=== PATIENT | female | born 1980 | race Caucasian/White ===

== ENCOUNTER 2017-12-30 17:55 | Emergency (ER) | payer BC, SELFPAY ==
[2017-12-30 18:06] VITALS: BP 121/79; PULSE 121; RESP 20; TEMP 37.1; O2SAT 96; BMI 24.2
--- NOTE | 2017-12-30 18:29 | HMH.EDUTC ---
[facility] [place] Clinical Impression: Abdominal pain, acute, epigastric Disposition: Still a Patient Condition on Discharge: Good Time of Disposition: 18:30 (tx to ER bed 9) Medical Decision Making - Clark Inquiry Pt receiving controlled substance: No Vital Signs: 12/30/17 18:06 Temperature 98.7 F Temperature Source Temporal Artery Scan Pulse Rate [Brachial] 121 H Respiratory Rate 20 Blood Pressure [Right Arm] 121/79 Blood Pressure Mean [Right Arm] 93 Blood Pressure Source [Right Arm] Automatic Cuff Blood Pressure Position [Right Arm] Sitting 02 Sat by Pulse Oximetry 96 Oxygen Delivery Method Room Air - Reevaluation(s) Time: 18:29 Reevaluation #1: Discussed possible differentials and [facility] guidelines with patient. Agreeable to transfer to ER for abdominal pain evaluation. Report called to ZAHRA Silveira RN. Room 9 available. [facility] [place] - General Stated complaint: abd pain,nausa Time Seen by Provider: 12/30/17 18:10 Mode of Arrival: Ambulatory Source of Information: Patient Limitations: No Limitations Description of Symptoms (Recalled from Triage Doc. by RN): INTERMITTANT ABDOMINAL PAIN FOR 2 MONTHS, HAS NAUSEA, ABD PAIN AND BLOATING TODAY. 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 STOOL TODAY HAS BEEN SMALL FORMED BALLS AND THEN GEL LIKE STOOL. HEENT Symptoms (Recalled from RN notes): No Resp Symptoms (Recalled from RN notes): No Skin Symptoms (Recalled from RN notes): No MS Symptoms (Recalled from RN notes): No Functional Status (Recalled from RN notes): NA - History of Present Illness Provider Complaint: c/o acute abdominal pain. 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 Started w/ RUQ sharp pains that would last 10-15 minutes, be better x hours, then occur again. Saw PCP, Dr. Tellez approx 2 months ago. RUQ US normal at that time. Hx of Sjorgen's Syndrome, hiatel hernia, H Pylori last year, stomach ulcers, Xiao's Esophagus, multiple colon polyps. Last EGD and colonoscopy nearly a year ago . Total hysterectomy 2007 d/t endometriosis that started to effect my bowel . Acute pain today. Woke pt up at 6am. New location. Epigastric but radiating to RUQ. Constant. Continued to worsen throughout day. Associated w/ bloating and nausea. Zofran has kept pt from vomiting. Last dose at 3pm. Stool has changed today. Hx of hemorrhoids and intermittent bleeding but not today. Today, gel like stools. No fever. Hasn't eaten since 6am when she ate breakfast and symptoms started. pain worse with movement. Even just the bumps on the car ride here hurt . - Related Data Home Medications Medication Instructions Recorded Confirmed Omeprazole Magnesium [Prilosec Otc 20 mg PO BID 12/30/17 12/30/17 20mg Tab] Allergies Allergy/AdvReac Type Severity Reaction Status Date / Time ketorolac [From TORADOL] Allergy Severe RESPIRATORY Unverified 10/07/17 14:09 - Worker's Comp Is this a Worker's Comp case?: No [facility] History I have reviewed the patient's past medical history: Yes Medical History: Reports:: Gastroesophageal Reflux Disease(GERD) Denies:: Diabetes Mellitus Type 1, Diabetes Mellitus Type 2, Hypertension Other Medical History: Reports: Other (see HPI) Other Surgeries: Yes: Hysterectomy-Total (2007) - Social History Alcohol Intake: never - Psychiatric History Expresses thoughts of harming self/others: None Suicide Plan Description: No Plan ROS Obtained: Yes Systems reviewed as appropriate & no additional complaints - Constitutional Constitutional: Reports as per HPI, Denies chills, Denies fatigue - Cardiovascular Cardiovascular: Denies chest pain, Denies irregular heart rhythm - Respiratory Respiratory: No dyspnea - Gastrointestinal Gastrointestingal: Reports: as per HPI. Denies: belching, excessive passing of gas - Genitourinary Female Genitourinary: Denies dysuria, Denies urinary frequency, Denies other (urine characteristics) - Musculoskeletal Musculo
--- NOTE | 2017-12-30 18:33 | ED_ITS ---
[facility] [place] Clinical Impression: Abdominal pain, acute, epigastric Disposition: Still a Patient Condition on Discharge: Good Time of Disposition: 18:30 (tx to ER bed 9) Medical Decision Making - Clark Inquiry Pt receiving controlled substance: No Vital Signs: 12/30/17 18:06 Temperature 98.7 F Temperature Source Temporal Artery Scan Pulse Rate [Brachial] 121 H Respiratory Rate 20 Blood Pressure [Right Arm] 121/79 Blood Pressure Mean [Right Arm] 93 Blood Pressure Source [Right Arm] Automatic Cuff Blood Pressure Position [Right Arm] Sitting 02 Sat by Pulse Oximetry 96 Oxygen Delivery Method Room Air - Reevaluation(s) Time: 18:29 Reevaluation #1: Discussed possible differentials and [facility] guidelines with patient. Agreeable to transfer to ER for abdominal pain evaluation. Report called to ZAHRA Silveira RN. Room 9 available. [facility] [place] HPI - General Stated complaint: abd pain,nausa Time Seen by Provider: 12/30/17 18:10 Mode of Arrival: Ambulatory Source of Information: Patient Limitations: No Limitations Description of Symptoms (Recalled from Triage Doc. by RN): INTERMITTANT ABDOMINAL PAIN FOR 2 MONTHS, HAS NAUSEA, ABD PAIN AND BLOATING TODAY. 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 STOOL TODAY HAS BEEN SMALL FORMED BALLS AND THEN GEL LIKE STOOL. HEENT Symptoms (Recalled from RN notes): No Resp Symptoms (Recalled from RN notes): No Skin Symptoms (Recalled from RN notes): No MS Symptoms (Recalled from RN notes): No Functional Status (Recalled from RN notes): NA - History of Present Illness Provider Complaint: c/o acute abdominal pain. 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 Started w/ RUQ sharp pains that would last 10-15 minutes, be better x hours, then occur again. Saw PCP, Dr. Tellez approx 2 months ago. RUQ US normal at that time. Hx of Sjorgen's Syndrome, hiatel hernia, H Pylori last year, stomach ulcers, Xiao's Esophagus, multiple colon polyps. Last EGD and colonoscopy nearly a year ago . Total hysterectomy 2007 d/t endometriosis that started to effect my bowel . Acute pain today. Woke pt up at 6am. New location. Epigastric but radiating to RUQ. Constant. Continued to worsen throughout day. Associated w/ bloating and nausea. Zofran has kept pt from vomiting. Last dose at 3pm. Stool has changed today. Hx of hemorrhoids and intermittent bleeding but not today. Today, gel like stools. No fever. Hasn't eaten since 6am when she ate breakfast and symptoms started. pain worse with movement. Even just the bumps on the car ride here hurt . - Related Data Home Medications Medication Instructions Recorded Confirmed Omeprazole Magnesium [Prilosec Otc 20 mg PO BID 12/30/17 12/30/17 20mg Tab] Allergies Allergy/AdvReac Type Severity Reaction Status Date / Time ketorolac [From TORADOL] Allergy Severe RESPIRATORY Unverified 10/07/17 14:09 - Worker's Comp Is this a Worker's Comp case?: No [facility] History I have reviewed the patient's past medical history: Yes Medical History: Reports:: Gastroesophageal Reflux Disease(GERD) Denies:: Diabetes Mellitus Type 1, Diabetes Mellitus Type 2, Hypertension Other Medical History: Reports: Other (see HPI) Other Surgeries: Yes: Hysterectomy-Total (2007) - Social History Alcohol Intake: never - Psychiatric History Expresses thoughts of harming self/others: None Suicide Plan Description:
[2017-12-30 18:36] VITALS: BP 129/75; PULSE 110; RESP 16; TEMP 37.1; O2SAT 94; BMI 24.2
--- NOTE | 2017-12-30 18:55 | HMH.EDABDPAI ---
ED Disposition Condition on Discharge: Good - Critical Care Critical Care Time: No <LorenaZoltan - Last Filed: 12/30/17 20:16> <Milton Tellez - Last Filed: 12/30/17 22:41> Clinical Impression: Abdominal pain, acute, epigastric Disposition: Home, Self-Care Instructions: DI for Acute Abdomen Additional Instructions: call pcp and gi for follow up Referrals: Milton Tellez MD [Primary Care Provider] - Attestation: On 12/30/17, the high probability of a clinically significant, sudden or life threatening deterioration of the following system(s) required my full and direct attention, intervention and personal management. The time I documented below is in addition to time spent performing reported procedures but includes the following listed in this critical care notation. Medical Decision Making - Clark Inquiry Pt receiving controlled substance: No - Lab Data Result diagrams: 12/30/17 18:50 12/30/17 18:50 <Zoltan Carrillo - Last Filed: 12/30/17 20:16> - Lab Data Result diagrams: 12/30/17 18:50 12/30/17 18:50 <Milton Tellez - Last Filed: 12/30/17 22:41> Vital Signs: 12/30/17 18:06 12/30/17 18:36 12/30/17 22:31 Temperature 98.7 F 98.7 F 97.6 F Temperature Source Temporal Artery Scan Oral Oral Pulse Rate [Brachial] 121 H 110 H 110 H Respiratory Rate 20 16 12 Blood Pressure [Right Arm] 121/79 129/75 149/85 Blood Pressure Mean [Right Arm] 93 93 106 Blood Pressure Source [Right Arm] Automatic Cuff Automatic Cuff Automatic Cuff Blood Pressure Position [Right Arm] Sitting Sitting Sitting 02 Sat by Pulse Oximetry 96 94 L 98 Oxygen Delivery Method Room Air Room Air Room Air - Lab Data Lab Results 12/30/17 18:50: WBC 7.6, RBC 4.50, Hgb 13.4, Hct 39.6, MCV 88.0, MCH 29.8, MCHC 33.9, RDW 12.8, Plt Count 201, MPV 7.9, Neut % (Auto) 85.4 H, Lymph % (Auto) 8.5 L, Bulloch % (Auto) 3.1, Eos % (Auto) 2.9, Baso % (Auto) 0.1, Neut # (Auto) 6.5, Lymph # (Auto) 0.7, Bulloch # (Auto) 0.2, Eos # (Auto) 0.2, Baso # (Auto) 0.0, Total Counted 100, Neutrophils % (Manual) 88 H, Lymphocytes % (Manual) 11, Eosinophils % (Manual) 1, Platelet Estimate Normal, RBC Morphology Normal, Stomatocytes 1+ 12/30/17 18:50: Sodium 140, Potassium 4.0, Chloride 105, Carbon Dioxide 27, Anion Gap 12.0, BUN 18, Creatinine 0.71, Estimated Creat Clear 114, Estimated GFR 92, Est GFR ( Amer) 111, Glucose 118 H, Calcium 8.5, Total Bilirubin 0.8, AST 26, ALT 61, Alkaline Phosphatase 78, Total Protein 7.5, Albumin 4.1, Globulin 3.4 H, Albumin/Globulin Ratio 1.2, Amylase 63, Lipase 177 Orders (Tests/Meds): ED MEDICATIONS Discontinued Medications Generic Name Dose Route Start Last Admin Trade Name Lindsey PRN Reason Stop Dose Admin Diatrizoate Meglum/Diatrizoate Sod 30 ml 12/30/17 19:25 12/30/17 19:26 Gastrografin 66%-10% 30ml PO 12/30/17 19:26 30 ml ONCE ONE Administration Famotidine 20 mg 12/30/17 22:15 12/30/17 22:19 Pepcid 20mg/2ml Vial IV 12/30/17 22:16 20 mg ONCE ONE Administration Iopamidol 75 ml 12/30/17 21:12 12/30/17 21:13 [id number]; 75ml Vial IV 12/30/17 21:13 75 ml ONCE ONE Administration Metoclopramide HCl 10 mg 12/30/17 22:15 12/30/17 22:19 Reglan 10mg/2ml Vial IVP 12/30/17 22:16 10 mg ONCE ONE Administration Ondansetron HCl 4 mg 12/30/17 19:19 12/30/17 19:26 Zofran 4mg/2ml Vial IV 12/30/17 19:20 4 mg ONCE ONE Administration Promethazine HCl 12.5 mg 12/30/17 22:15 12/30/17 22:20 Phenergan 25mg/Ml 1ml Vial IV 12/30/17 22:16 12.5 mg ONCE ONE Administration Sodium Chloride 1,000 ml 12/30/17 19:19 12/30/17 19:26 Sod Chlor 0.9% 1000ml Bag IV 12/30/17 19:20 1,000 ml BOLUS ONE Administration Sodium Chloride 10 ml 12/30/17 21:12 12/30/17 21:13 Rad-Saline Flush 10ml Syringe IV 12/30/17 21:13 10 ml ONCE ONE Administration Sodium Chloride 25 ml 12/30/17 22:15 Sod Chlor 0.9% 25ml Bag IV 12/30/17 22:16
[2017-12-30 19:01] LABS: Basophils % 0.1 % (0.1-2.0); Eosinophils # 0.2 K/mm3 (0.0-0.4); Eosinophils % 2.9 % (0.1-12.0); Hematocrit 39.6 % (37.0-47.0); Hemoglobin 13.4 g/dL (12.2-16.2); Lymphocytes # 0.7 K/mm3 (0.7-4.5); Lymphocytes % 8.5 K/mm3 (10-50); Mean Corpuscular HGB Conc 33.9 g/dL (31.8-35.4); Mean Corpuscular Hemoglobin 29.8 pg (27.0-31.2); Mean Platelet Volume 7.9 fl (7.4-10.4); Monocytes # 0.2 K/mm3 (0.1-1.0); Monocytes % 3.1 % (1.7-9.3); Neutrophils # 6.5 K/mm3 (1.8-7.8); Neutrophils % 85.4 % (37.0-80.0); Platelet Count 201 K/mm3 (142-424); Red Cell Distribution Width 12.8 % (11.5-17.5); White Blood Count 7.6 K/mm3 (4.8-10.8)
[2017-12-30 19:12] LABS: Alanine Aminotransferase 61 U/L (12-78); Albumin Level 4.1 gm/dL (3.4-5.0); Albumin/Globulin Ratio 1.2 (1.1-1.8); Alkaline Phosphatase 78 U/L (46-116); Amylase 63 U/L (25-125); Aspartate Amino Transferase 26 U/L (15-37); Bilirubin,Total 0.8 mg/dL (0.2-1.0); Blood Urea Nitrogen 18 mg/dL (7-18); Calcium 8.5 mg/dL (8.5-10.1); Carbon Dioxide 27 mmol/L (21.0-32.0); Chloride 105 mmol/L (98-107); Creatinine Clearance Estimated 114 mL/min (0-300); Creatinine,Serum 0.71 mg/dL (0.55-1.02); Estimated Glomerular Filt Rate 92 ml/min (>60); GFR (African American) 111 ML/MIN (>60); Globulin 3.4 gm/dl (1.3-3.2); Glucose 118 mg/dL (74-106); Lipase 177 u/L (73-393); Sodium 140 mmol/L (136-145); Total Protein,Serum 7.5 gm/dL (6.4-8.2)
[2017-12-30 19:14] LABS: MANUAL DIFFERENTIAL MANUAL DIFFERENTIAL (MANUAL DIFF)
--- NOTE | 2017-12-30 19:19 | CT_ITS ---
CT abdomen pelvis w con CLINICAL INDICATION: Epigastric pain radiating to the right side with bloating ITS.REASON: abdo pain, bloating ORDERING PHYSICIAN: Zoltan Carrillo MD PATIENT AGE: 37 years COMPARISON: None TECHNIQUE: Axial images obtained with sagittal and coronal reformats. PROCEDURE: Oral Contrast: Redicat IV Contrast: 75 mL's of [id number] Lung bases are clear. The liver, spleen, adrenal glands, pancreas, kidneys, and gallbladder have an unremarkable appearance. No intestinal obstruction or free air is evident. No evidence of appendicitis or diverticulitis. Prior hysterectomy. No pelvic mass or abnormal fluid collection. There is a mild amount retained colonic feces. Surgical clips are present in the left external iliac region. There is a small fat-containing umbilical hernia. No acute bony anomalies. IMPRESSION: 1. No acute abdominal or pelvic findings. 2. Mild constipation
--- NOTE | 2017-12-30 19:30 | PC.NURSE ---
Pt finished PO contrast at 1929, notified rad
[2017-12-30 21:30] LABS: Eosinophils % 1 % (0-3); Lymphocytes % 11 % (10-50); Neutrophils % 88 % (42-76); Total Cells Counted 100
[2017-12-30 21:31] LABS: Platelet Estimate Normal; RBC Morphology Normal; Stomatocytes 1+
[2017-12-30 22:31] VITALS: BP 149/85; PULSE 110; RESP 12; TEMP 36.4; O2SAT 98
[2017-12-30 22:48] VITALS: BP 149/85; PULSE 110; RESP 12; TEMP 36.4
== END 2017-12-30 22:48 | disposition home or self-care (01) ==
LOC: UTC 18:30 → ER 18:34
PROVIDERS: Emergency Provider Emergency Medicine; Family Provider Emergency Medicine; PCP Emergency Medicine
DX: R10.13 Epigastric pain (principal); E11.9 Type 2 diabetes mellitus without complications; I10 Essential (primary) hypertension; K21.9 Gastro-esophageal reflux disease without esophagitis
CPT/HCPCS: 74177; 80053; 82150; 83690; 85007; 85025; 87086; 96360; 96365; 96374; 96375; 99283; J2405; Q9967

== ENCOUNTER → 2018-10-30 08:45 | Outpatient (CLI) | payer BC, SELFPAY | PROVIDERS: PCP Family Medicine; Visit Provider Nurse Practitioner | DX: Z12.31 Encounter for screening mammogram for malignant neoplasm of breast (principal); Z98.890 Other specified postprocedural states ==

== ENCOUNTER → 2018-11-10 09:13 | Outpatient (CLI) | payer BC, SELFPAY ==
--- NOTE | 2018-11-10 09:16 | US_ITS ---
US breast RT complete INDICATION: Screening for breast cancer, patient with breast implants ORDERING PHYSICIAN: Romel Trujillo MD PATIENT AGE: 38 years COMPARISON: None TECHNIQUE: Complete right breast ultrasound with axilla FINDINGS: No cystic or solid mass is evident. Breast implant is noted. There are small nodes in the axilla. IMPRESSION: Right breast implant in place otherwise negative ultrasound of the right breast BI-RADS Category: 1 Negative Recommendations: Please correlate with physical exam. A negative ultrasound does not exclude the possibility of malignancy. Consider completing the screening process with screening mammogram (A letter has been sent to the patient regarding results of the study.)
--- NOTE | 2018-11-10 09:16 | US_ITS ---
US breast LT complete INDICATION: Screening for breast cancer, prior implants ORDERING PHYSICIAN: Romel Trujillo MD PATIENT AGE: 38 years COMPARISON: None TECHNIQUE: Complete ultrasound of the breast with axilla FINDINGS: No cystic or solid masses are evident. Breast implant is in place. IMPRESSION: No evidence of malignancy. BI-RADS Category: 1 Negative Recommendations: Please correlate with physical exam. A negative ultrasound does not exclude the possibility of malignancy. Consider completing the screening process with screening mammogram (A letter has been sent to the patient regarding results of the study.)
== END ==
PROVIDERS: PCP Family Medicine; Visit Provider Family Medicine
DX: Z12.31 Encounter for screening mammogram for malignant neoplasm of breast (principal)
CPT/HCPCS: 76641

== ENCOUNTER → 2019-01-21 16:15 | Outpatient (CLI) | payer BC, SELFPAY ==
--- NOTE | 2019-01-21 16:24 | PC.NURSE ---
HERE FOR [facility]
== END | disposition home or self-care (01) ==
PROVIDERS: PCP Family Medicine; Visit Provider Nurse Practitioner Family
DX: Z00.00 Encounter for general adult medical examination without abnormal findings (principal)

== ENCOUNTER → 2019-08-12 12:41 | Outpatient (CLI) | payer BC, SELFPAY ==
--- NOTE | 2019-08-12 12:48 | MR_ITS ---
PROCEDURE: MR CERVICAL SPINE WO CON CLINICAL INDICATION: CERVICAL SPONDYLOSIS Right-sided neck pain with headache and grinding COMPARISON: No exams were available for comparison TECHNIQUE: Standard multiplanar multiecho sequences are performed without contrast. 3-D MIP and myelographic images are also rendered and reviewed FINDINGS: There is slight reversal of the cervical lordosis at the C5-C6 level. There is normal alignment. Cranial cervical junction has an unremarkable appearance. C2-C3: Unremarkable. C3-C4: Unremarkable. C4-C5: Unremarkable. C5-C6: There is degenerative disc disease at this level with a broad-based bulging disc/disc osteophyte complex which is eccentric toward the right with central narrowing of the canal at 10 mm and bilateral lateral recess narrowing and bilateral foraminal narrowing. This is more extensive on the right. There is mild retrolisthesis of C5 of approximately 2-3 mm. C6-C7 and C7-T1 have an unremarkable appearance. IMPRESSION: 1. Degenerative disc disease at C5-C6 with a broad-based bulging disc/disc osteophyte complex which is eccentric toward the right with central narrowing of the canal at 10 mm there is moderate to severe right lateral recess and foraminal narrowing and moderate left lateral recess and foraminal narrowing.. There is mild retrolisthesis of C5 of approximately 2-3 mm. There is bilateral uncovertebral hypertrophy at C5-C6 slightly greater on the right. 2. No extruded herniated disc. 3. Slight reversal cervical lordosis which could be due to muscle spasm Dictated by: Indra Gonzalez MD 08/13/2019 18:18 Electronically signed by Indra Gonzalez MD in [place] 08/14/2019 08:49
--- NOTE | 2019-08-12 12:49 | MR_ITS ---
PROCEDURE: MR LUMBAR SPINE WO CON CLINICAL INDICATION: LUMBAR SPONDYLOSIS Low back pain COMPARISON: No exams were available for comparison TECHNIQUE: Standard multiplanar multiecho sequences are performed without contrast. 3-D MIP and myelographic images are also rendered and reviewed FINDINGS: Normal alignment. The spinal cord ends at the L1 level. The disc spaces are well preserved. No disc herniation, canal stenosis, or significant bulging disc. No impingement apparent. There is some minimal facet hypertrophic change at L4-L5 and L5-S1. IMPRESSION: 1. Mild facet arthritic change L4-5 and L5-S1. 2. No disc herniation or other significant anomaly. Dictated by: Indra Gonzalez MD 08/13/2019 18:19 Electronically signed by Indra Gonzalez MD in [place] 08/14/2019 09:06
== END ==
PROVIDERS: PCP Family Medicine; Visit Provider Nurse Practitioner Family
DX: M47.816 Spondylosis without myelopathy or radiculopathy, lumbar region (principal); M47.812 Spondylosis without myelopathy or radiculopathy, cervical region
CPT/HCPCS: 72141; 72148; 76376

== ENCOUNTER → 2019-10-07 13:29 | Outpatient (POV) | payer BC, SELFPAY | PROVIDERS: Visit Provider Neurological Surgery | DX: Z00.00 Encounter for general adult medical examination without abnormal findings (principal) ==